=== PATIENT | female | born 1935 | race African-American/Black ===

== ENCOUNTER 2019-04-27 13:24 | Inpatient (IN) | payer MEDICARE, MEDICAID ==
[~2019-04-27] VITALS: Ht 157.5 cm; Wt 74.4 kg
[~2019-04-27 13:24] MED LIST: AMLO5TAB4 MT; DICL50TA9 MT; LABE100T5 PO; LOSA100T3 PO
[2019-04-27] MEDS ORDERED: ACETAMINOPHEN WITH CODEINE 300/30MG TABLET PO STA (18:03)
[2019-04-27 18:33] LABS: BASOPHILS % 1.3 % (0.0-2.0); CHLORIDE 110 mEq/L (98-107); EOSINOPHILS % 2.4 % (0.0-5.0); HEMATOCRIT. 38.2 % (36.0-48.0); HEMOGLOBIN. 13.3 g/dL (12.0-16.0); LYMPHOCYTES % 36.7 % (20.0-50.0); MEAN CORPUSCULAR HEMOGLOBIN 35.5 pg (28.0-32.0); MEAN CORPUSCULAR VOLUME 101.9 fL (81.0-99.0); MEAN PLATELET VOLUME 8.9 fl (7.4-10.4); MONOCYTES % 12.6 % (2.0-8.0); PLATELET 214 x1000/uL (130-400); RED BLOOD CELL COUNT 3.75 mill/uL (4.2-5.4); RED CELL DISTRIBUTION WIDTH 13.6 % (11.6-14.6)
[2019-04-27 19:22] LABS: CLARITY URINE CLEAR (CLEAR); COLOR URINE YELLOW (YELLOW); KETONES URINE NEGATIVE (NEGATIVE); LEUKOCYTE ESTERASE URINE TRACE (NEGATIVE); NITRITE URINE NEGATIVE (NEGATIVE); OCCULT BLOOD URINE NEGATIVE (NEGATIVE); PROTEIN URINE NEGATIVE (NEGATIVE); SPECIFIC GRAVITY URINE 1.021 (1.005-1.030); UROBILINOGEN URINE 0.2 E.U./dL (0.2-1.0)
[2019-04-27] MEDS ORDERED: MORPHINE SULFATE 4 MG/ML CPJ (NOT FOR IM USE) IV STA (19:42)
[2019-04-27] MEDS ORDERED: ONDANSETRON HCL 4MG/2ML INJ IV STA (19:42)
[2019-04-27] MEDS ORDERED: SODIUM CHLORIDE 0.9% 1,000 ML IV ONE (19:45)
[2019-04-27] MEDS ORDERED: CEFTRIAXONE 1 G PREMIX 50 ML IV ONE (19:45)
[2019-04-27] MEDS ORDERED: CLONIDINE 0.2MG TABLET PO NR (22:01)
[2019-04-27 23:35] VITALS: BP 108/65
[2019-04-28] MEDS ORDERED: GABA800T97 PO (00:28)
[2019-04-28] MEDS ORDERED: HYDR-4001 PO (00:28)
[2019-04-28] MEDS ORDERED: CLONIDINE 0.1MG TABLET PO PRN (01:15)
[2019-04-28] MEDS ORDERED: HYDROCODONE/ACETAMINOPHEN 5/325MG TABLET PO PRN (01:15)
[2019-04-28 04:00] VITALS: BP 96/70
[2019-04-28] MEDS: GABAPENTIN 400MG CAPSULE PO SCH ×2 (05:08→14:00)
[2019-04-28 05:47] LABS: BASOPHILS % 1.1 % (0.0-2.0); EOSINOPHILS % 2.8 % (0.0-5.0); HEMATOCRIT. 36.4 % (36.0-48.0); LYMPHOCYTES % 41.6 % (20.0-50.0); MEAN CORPUSCULAR HEMOGLOBIN 34.2 pg (28.0-32.0); MEAN CORPUSCULAR VOLUME 103.6 fL (81.0-99.0); MEAN PLATELET VOLUME 9.4 fl (7.4-10.4); MONOCYTES % 12.8 % (2.0-8.0); NEUTROPHILS % 41.7 % (40.0-76.0); PLATELET 181 x1000/uL (130-400); RED BLOOD CELL COUNT 3.52 mill/uL (4.2-5.4); RED CELL DISTRIBUTION WIDTH 13.4 % (11.6-14.6)
[2019-04-28 08:00] VITALS: BP 136/70
[2019-04-28] MEDS ORDERED: ENOXAPARIN 40MG/0.4ML SYR SUBCUT SCH (09:00)
[2019-04-28] MEDS ORDERED: ASPIRIN 325MG EC TABLET PO SCH (09:00)
[2019-04-28] MEDS ORDERED: LABETALOL HCL 100MG TABLET PO SCH (09:00)
[2019-04-28] MEDS ORDERED: LOSARTAN POTASSIUM 50 MG TABLET PO SCH (09:00)
[2019-04-28 12:00] VITALS: BP 91/61
[2019-04-28] MEDS ORDERED: ACET650T37 MT (12:51)
[2019-04-28 16:00] VITALS: BP 81/51
[2019-04-28] MEDS ORDERED: ACETAMINOPHEN 650MG/20.3ML UDC PO PRN (17:00)
[2019-04-28 18:36] VITALS: BP 103/64
== END 2019-04-28 19:10 | disposition home or self-care (01) | DRG 470 ==
LOC: ER 13:24 → ENRESERV 21:25 → EDBEDREQTM 22:11 → EDBEDREQSVC 22:11 → ENRESERV 23:05 → 6WST 23:22
PROVIDERS: ADMIT Internal Medicine; ATTEND Internal Medicine
DX: I12.9 Hypertensive chronic kidney disease with stage 1 through stage 4 chronic kidney disease, or unspecified chronic kidney disease (principal); N30.00 Acute cystitis without hematuria; D75.89 Other specified diseases of blood and blood-forming organs; M48.061 Spinal stenosis, lumbar region without neurogenic claudication; D72.821 Monocytosis (symptomatic); E78.5 Hyperlipidemia, unspecified; N18.9 Chronic kidney disease, unspecified; Z96.641 Presence of right artificial hip joint; M54.31 Sciatica, right side; Z98.891 History of uterine scar from previous surgery; Z79.899 Other long term (current) drug therapy
CPT/HCPCS: 36415; 71045; 72148; 73502; 80048; 80053; 81003; 84484; 85025; 93005; 96365; 97162; 99285; J0696; J1650; J2270; J2405; J7030

== ENCOUNTER 2020-10-29 11:48 | Inpatient (IN) | payer MEDICARE, MEDICAID ==
[~2020-10-29] VITALS: Ht 157.5 cm; Wt 68.9 kg
[~2020-10-29 11:48] MED LIST changes: +ACET650T37 MT; -DICL50TA9 MT; +HYDR-4001 PO
[2020-10-29] MEDS ORDERED: ASPIRIN 325MG EC TABLET PO ONE (13:15)
[2020-10-29 13:53] LABS: BASOPHILS % 0.8 % (0.0-2.0); EOSINOPHILS % 1.4 % (0.0-5.0); HEMATOCRIT. 41.2 % (36.0-48.0); LYMPHOCYTES % 25.4 % (20.0-50.0); MEAN CORPUSCULAR HEMOGLOBIN 34.3 pg (28.0-32.0); MEAN CORPUSCULAR VOLUME 101.2 fL (81.0-99.0); MEAN PLATELET VOLUME 9.9 fl (7.4-10.4); MONOCYTES % 10.1 % (2.0-8.0); NEUTROPHILS % 62.3 % (40.0-76.0); PLATELET 201 x1000/uL (130-400); RED BLOOD CELL COUNT 4.08 mill/uL (4.2-5.4); RED CELL DISTRIBUTION WIDTH 13.2 % (11.6-14.6)
[2020-10-29 13:58] LABS: CHLORIDE 111 mEq/L (98-107)
[2020-10-29] MEDS ORDERED: FUROSEMIDE 40MG/4ML VIAL IVP NR (14:15)
[2020-10-29] MEDS ORDERED: HYDROCODONE/ACETAMINOPHEN 10/325MG TABLET PO PRN (22:27)
[2020-10-29] MEDS ORDERED: NITROGLYCERIN 0.4MG TABLET SL SL PRN (22:27)
[2020-10-29 23:05] VITALS: BP 105/65
[2020-10-30] MEDS ORDERED: NITROGLYCERIN 0.4MG TABLET SL SL PRN
[2020-10-30] MEDS ORDERED: CARV12.545 PO (04:08)
[2020-10-30] MEDS ORDERED: AMIT75TA2 PO (04:08)
[2020-10-30] MEDS ORDERED: VALS80TA30 PO (04:08)
[2020-10-30] MEDS ORDERED: FLUT1BLS15 IH (04:08)
[2020-10-30] MEDS ORDERED: AZEL137S7 (04:08)
[2020-10-30] MEDS ORDERED: AMLO5TAB88 PO (04:08)
[2020-10-30 05:30] VITALS: BP 147/78
[2020-10-30] MEDS: HYDROCODONE/ACETAMINOPHEN 10/325MG TABLET PO PRN ×2 (05:48→13:21)
[2020-10-30 06:40] LABS: CHLORIDE 108 mEq/L (98-107)
[2020-10-30 06:44] LABS: EOSINOPHILS % 2.8 % (0.0-5.0); HEMATOCRIT. 41.5 % (36.0-48.0); HEMOGLOBIN. 14.2 g/dL (12.0-16.0); LYMPHOCYTES % 35.7 % (20.0-50.0); MEAN CORPUSCULAR HEMOGLOBIN 34.5 pg (28.0-32.0); MEAN PLATELET VOLUME 10.1 fl (7.4-10.4); MONOCYTES % 13.2 % (2.0-8.0); NEUTROPHILS % 47.3 % (40.0-76.0); PLATELET 188 x1000/uL (130-400); RED BLOOD CELL COUNT 4.11 mill/uL (4.2-5.4); RED CELL DISTRIBUTION WIDTH 13.3 % (11.6-14.6)
[2020-10-30 06:47] LABS: LDL CHOLESTEROL 90 mg/dL (5-100)
[2020-10-30 06:48] LABS: HDL CHOLESTEROL 70 mg/dL (40-59)
[2020-10-30 08:00] VITALS: BP 125/59
[2020-10-30] MEDS: IPRATROPIUM/ALBUTEROL 0.5-3(2.5)MG/3ML NEB HHN SCH ×5 (08:00→21:13)
[2020-10-30] MEDS ORDERED: AMLODIPINE 10MG TABLET PO SCH (09:00)
[2020-10-30] MEDS ORDERED: ENOXAPARIN 40MG/0.4ML SYR SUBCUT SCH (09:00)
[2020-10-30] MEDS ORDERED: FUROSEMIDE 40MG/4ML VIAL IVP SCH (09:00)
[2020-10-30] MEDS: LOSARTAN POTASSIUM 100 MG TABLET PO SCH (09:18)
[2020-10-30] MEDS: ASPIRIN 81MG TABLET PO SCH (09:18)
[2020-10-30] MEDS: CARVEDILOL 12.5MG TABLET PO SCH ×2 (09:19→20:13)
[2020-10-30] MEDS: FAMOTIDINE 20MG TABLET PO SCH (09:19)
[2020-10-30] MEDS: ENOXAPARIN 30MG/0.3ML SYR SUBCUT SCH (09:20)
[2020-10-30 12:00] VITALS: BP 99/57
[2020-10-30] MEDS ORDERED: POTASSIUM CHLORIDE 20MEQ TABLET SR PO NR (13:00)
[2020-10-30] MEDS: FUROSEMIDE 40MG/4ML VIAL IVP SCH ×2 (13:22→16:51)
[2020-10-30 16:00] VITALS: BP 99/57
[2020-10-30] MEDS ORDERED: METHYLPREDNISOLONE SOD SUCC 125 MG/2 ML VIAL IV NR (18:30)
[2020-10-30 20:00] VITALS: BP 97/58
[2020-10-30] MEDS: AMITRIPTYLINE 25MG TABLET PO SCH (20:29)
[2020-10-30] MEDS ORDERED: AMITRIPTYLINE 50MG TABLET PO SCH (21:00)
[2020-10-31] MEDS: IPRATROPIUM/ALBUTEROL 0.5-3(2.5)MG/3ML NEB HHN SCH ×6 (01:30→21:43)
[2020-10-31] MEDS ORDERED: METHYLPREDNISOLONE SOD SUCC 40 MG/ML VIAL IV SCH (02:00)
[2020-10-31] MEDS: ASPIRIN 81MG TABLET PO SCH (08:31)
[2020-10-31] MEDS: LOSARTAN POTASSIUM 100 MG TABLET PO SCH (08:31)
[2020-10-31] MEDS: ENOXAPARIN 30MG/0.3ML SYR SUBCUT SCH (08:31)
[2020-10-31] MEDS: CARVEDILOL 12.5MG TABLET PO SCH ×2 (08:31→21:08)
[2020-10-31] MEDS: FUROSEMIDE 40MG/4ML VIAL IVP SCH ×2 (08:31→18:05)
[2020-10-31] MEDS: FAMOTIDINE 20MG TABLET PO SCH (08:31)
[2020-10-31 09:38] VITALS: BP 127/76
[2020-10-31 12:19] VITALS: BP 90/50
[2020-10-31] MEDS: METHYLPREDNISOLONE SOD SUCC 40 MG/ML VIAL IV SCH ×2 (13:30→21:08)
[2020-10-31 16:07] LABS: HEMATOCRIT. 39.8 % (36.0-48.0); HEMOGLOBIN. 13.5 g/dL (12.0-16.0); LYMPHOCYTES % 9.8 % (20.0-50.0); MEAN CORPUSCULAR HEMOGLOBIN 34.2 pg (28.0-32.0); MEAN CORPUSCULAR VOLUME 100.8 fL (81.0-99.0); MEAN PLATELET VOLUME 10.4 fl (7.4-10.4); MONOCYTES % 3.4 % (2.0-8.0); NEUTROPHILS % 86.8 % (40.0-76.0); PLATELET 198 x1000/uL (130-400); RED BLOOD CELL COUNT 3.95 mill/uL (4.2-5.4); RED CELL DISTRIBUTION WIDTH 13.4 % (11.6-14.6)
[2020-10-31 16:08] VITALS: BP 107/62
[2020-10-31 20:00] VITALS: BP 116/61
[2020-10-31] MEDS: AMITRIPTYLINE 25MG TABLET PO SCH (21:08)
[2020-10-31 23:54] VITALS: BP 110/68
[2020-11-01 03:53] VITALS: BP 111/70
[2020-11-01] MEDS: IPRATROPIUM/ALBUTEROL 0.5-3(2.5)MG/3ML NEB HHN SCH ×4 (04:27→16:05)
[2020-11-01] MEDS: METHYLPREDNISOLONE SOD SUCC 40 MG/ML VIAL IV SCH ×2 (05:27→14:38)
[2020-11-01 08:00] VITALS: BP 131/80
[2020-11-01] MEDS: ASPIRIN 81MG TABLET PO SCH (08:59)
[2020-11-01] MEDS: FUROSEMIDE 40MG/4ML VIAL IVP SCH (08:59)
[2020-11-01] MEDS: FAMOTIDINE 20MG TABLET PO SCH (08:59)
[2020-11-01] MEDS: LOSARTAN POTASSIUM 100 MG TABLET PO SCH (08:59)
[2020-11-01] MEDS: CARVEDILOL 12.5MG TABLET PO SCH (09:00)
[2020-11-01] MEDS: ENOXAPARIN 30MG/0.3ML SYR SUBCUT SCH (09:00)
[2020-11-01 12:00] VITALS: BP 122/67
[2020-11-01] MEDS ORDERED: ALBU18HF2 IH (12:50)
[2020-11-01] MEDS ORDERED: FLUT1DIS3 INH (12:50)
[2020-11-01] MEDS ORDERED: POTA20TA82 MT (12:51)
[2020-11-01] MEDS ORDERED: FURO-151 MT (12:51)
[2020-11-01 15:15] VITALS: BP 122/67
== END 2020-11-01 16:45 | disposition home health service (06) | DRG 133 ==
LOC: ER 11:48 → 7WST 16:18 → EDBEDREQTM 16:21 → EDBEDREQ 16:21 → ENRESERV 22:02 → 8WST 10-30 05:20
PROVIDERS: ADMIT Internal Medicine; ATTEND Internal Medicine
DX: J96.01 Acute respiratory failure with hypoxia (principal); I50.23 Acute on chronic systolic (congestive) heart failure; E87.8 Other disorders of electrolyte and fluid balance, not elsewhere classified; I24.8 Other forms of acute ischemic heart disease; J44.1 Chronic obstructive pulmonary disease with (acute) exacerbation; I11.0 Hypertensive heart disease with heart failure; E78.5 Hyperlipidemia, unspecified; Z20.822 Contact with and (suspected) exposure to COVID-19; E78.00 Pure hypercholesterolemia, unspecified; Z96.649 Presence of unspecified artificial hip joint; Z79.899 Other long term (current) drug therapy; Z82.49 Family history of ischemic heart disease and other diseases of the circulatory system; Z87.891 Personal history of nicotine dependence
CPT/HCPCS: 36415; 71045; 80048; 80053; 80061; 83880; 84484; 85025; 93005; 93306; 94640; 97162; 99285; C1893; J1650; J1940; J2920; J2930; U0003; U0005

== ENCOUNTER 2021-04-19 14:11 | Inpatient (IN) | payer MEDICARE, OTHER ==
[~2021-04-19] VITALS: Ht 172.7 cm; Wt 68.0 kg
[~2021-04-19 14:11] MED LIST changes: +ALBU18HF2 IH; +AMIT75TA2 PO; +AMLO5TAB88 PO; +AZEL137S7; +CARV12.545 PO; +FLUT1DIS3 INH; +FURO-151 MT; +METH4TAB17 MT; +POTA20TA82 MT; +VALS80TA30 PO
[2021-04-19] MEDS ORDERED: ASPIRIN 81MG TABLET PO ONE (15:30)
[2021-04-19 15:39] LABS: BASOPHILS % 0.5 % (0.0-2.0); EOSINOPHILS % 0.1 % (0.0-5.0); HEMATOCRIT. 44.3 % (36.0-48.0); LYMPHOCYTES % 21.5 % (20.0-50.0); MEAN CORPUSCULAR HEMOGLOBIN 33.9 pg (28.0-32.0); MEAN CORPUSCULAR VOLUME 100.4 fL (81.0-99.0); MEAN PLATELET VOLUME 8.6 fl (7.4-10.4); MONOCYTES % 10.5 % (2.0-8.0); NEUTROPHILS % 67.4 % (40.0-76.0); PLATELET 269 x1000/uL (130-400); RED BLOOD CELL COUNT 4.42 mill/uL (4.2-5.4); RED CELL DISTRIBUTION WIDTH 13.3 % (11.6-14.6)
[2021-04-19 15:43] LABS: CHLORIDE 102 mEq/L (98-107)
[2021-04-19] MEDS ORDERED: FUROSEMIDE 40MG/4ML VIAL IVP ONE (17:00)
[2021-04-19 20:08] LABS: CLARITY URINE CLEAR (CLEAR); COLOR URINE YELLOW (YELLOW); KETONES URINE NEGATIVE (NEGATIVE); LEUKOCYTE ESTERASE URINE NEGATIVE (NEGATIVE); NITRITE URINE NEGATIVE (NEGATIVE); OCCULT BLOOD URINE NEGATIVE (NEGATIVE); PH URINE 5.5 (4.5-8.0); PROTEIN URINE NEGATIVE (NEGATIVE); SPECIFIC GRAVITY URINE 1.014 (1.005-1.030); UROBILINOGEN URINE 0.2 E.U./dL (0.2-1.0)
[2021-04-19 21:08] VITALS: BP_SYST 124; BP_SYST 128; BP_DIAS 98
[2021-04-19] MEDS ORDERED: ASPI-1160 MT (22:53)
[2021-04-19] MEDS ORDERED: VALA500T MT (22:53)
[2021-04-20] MEDS ORDERED: NALOXONE HCL 0.4 MG/ML 1ML VIAL IV PRN (00:30)
[2021-04-20] MEDS: HYDROCODONE/ACETAMINOPHEN 5/325MG TABLET PO PRN ×3 (00:43→18:16)
[2021-04-20] MEDS ORDERED: ACETAMINOPHEN 325MG TABLET PO PRN (01:00)
[2021-04-20 04:00] VITALS: BP 120/85
[2021-04-20 08:00] VITALS: BP 140/85
[2021-04-20] MEDS: IPRATROPIUM/ALBUTEROL 0.5-3(2.5)MG/3ML NEB HHN SCH ×3 (09:12→21:21)
[2021-04-20] MEDS: CARVEDILOL 12.5MG TABLET PO SCH ×2 (09:59→21:00)
[2021-04-20] MEDS: AMLODIPINE 5MG TABLET PO SCH (09:59)
[2021-04-20] MEDS: LOSARTAN POTASSIUM 100 MG TABLET PO SCH (09:59)
[2021-04-20] MEDS: LABETALOL HCL 100MG TABLET PO SCH ×2 (10:00→20:52)
[2021-04-20] MEDS: FUROSEMIDE 40MG TABLET PO SCH ×2 (10:06→21:00)
[2021-04-20] MEDS: FLUTICASONE PROPIONATE 50MCG/SPRAY BOTTLE BOTHNSTRLS SCH ×2 (10:07→22:03)
[2021-04-20 12:00] VITALS: BP 102/50
[2021-04-20 16:00] VITALS: BP 111/57
[2021-04-20] MEDS: DOCUSATE SODIUM 250MG CAPSULE PO SCH (18:42)
[2021-04-20 20:00] VITALS: BP 89/55
[2021-04-20] MEDS ORDERED: AMITRIPTYLINE 25MG TABLET PO SCH (21:00)
[2021-04-21] VITALS: BP 95/55
[2021-04-21] MEDS: IPRATROPIUM/ALBUTEROL 0.5-3(2.5)MG/3ML NEB HHN SCH ×2 (01:00→04:55)
[2021-04-21 04:00] VITALS: BP 103/63
[2021-04-21 08:00] VITALS: BP 100/65
[2021-04-21] MEDS: LOSARTAN POTASSIUM 100 MG TABLET PO SCH (08:08)
[2021-04-21] MEDS: CARVEDILOL 12.5MG TABLET PO SCH (08:08)
[2021-04-21] MEDS: LABETALOL HCL 100MG TABLET PO SCH (08:09)
[2021-04-21] MEDS: AMLODIPINE 5MG TABLET PO SCH (08:09)
[2021-04-21] MEDS: FUROSEMIDE 40MG TABLET PO SCH (08:09)
[2021-04-21] MEDS ORDERED: ASPIRIN 81MG TABLET PO SCH (09:00)
[2021-04-21] MEDS: DOCUSATE SODIUM 250MG CAPSULE PO SCH (09:29)
[2021-04-21] MEDS: FLUTICASONE PROPIONATE 50MCG/SPRAY BOTTLE BOTHNSTRLS SCH (09:29)
[2021-04-21 12:00] VITALS: BP 90/50
[2021-04-21 15:27] VITALS: BP 98/54
[2021-04-21 15:57] LABS: BASOPHILS % 0.5 % (0.0-2.0); EOSINOPHILS % 1.9 % (0.0-5.0); HEMATOCRIT. 40.8 % (36.0-48.0); HEMOGLOBIN. 13.6 g/dL (12.0-16.0); LYMPHOCYTES % 29.8 % (20.0-50.0); MEAN CORPUSCULAR HEMOGLOBIN 34.1 pg (28.0-32.0); MEAN CORPUSCULAR VOLUME 102.7 fL (81.0-99.0); MEAN PLATELET VOLUME 9.1 fl (7.4-10.4); MONOCYTES % 11.4 % (2.0-8.0); NEUTROPHILS % 56.4 % (40.0-76.0); PLATELET 216 x1000/uL (130-400); RED BLOOD CELL COUNT 3.98 mill/uL (4.2-5.4); RED CELL DISTRIBUTION WIDTH 13.2 % (11.6-14.6)
== END 2021-04-21 16:30 | disposition home or self-care (01) | DRG 203 ==
LOC: ER 15:14 → 6WST 17:13 → EDBEDREQ 17:27 → ENRESERV 19:38
PROVIDERS: ADMIT Internal Medicine; ATTEND Internal Medicine
DX: M94.0 Chondrocostal junction syndrome [Tietze] (principal); N17.0 Acute kidney failure with tubular necrosis; I50.23 Acute on chronic systolic (congestive) heart failure; I11.0 Hypertensive heart disease with heart failure; E87.1 Hypo-osmolality and hyponatremia; Z96.649 Presence of unspecified artificial hip joint; I27.20 Pulmonary hypertension, unspecified; E78.00 Pure hypercholesterolemia, unspecified; E78.5 Hyperlipidemia, unspecified; Z82.49 Family history of ischemic heart disease and other diseases of the circulatory system; Z87.891 Personal history of nicotine dependence; Z98.891 History of uterine scar from previous surgery; Z79.899 Other long term (current) drug therapy
CPT/HCPCS: 36415; 71045; 80048; 80053; 81003; 83880; 84484; 85025; 93005; 93306; 94640; 99291; J1940

== ENCOUNTER 2021-04-25 14:41 | Inpatient (IN) | payer MEDICARE, OTHER ==
[~2021-04-25] VITALS: Ht 157.5 cm; Wt 81.7 kg
[~2021-04-25 14:41] MED LIST changes: +ASPI-1160 MT; -METH4TAB17 MT
[2021-04-25 16:06] LABS: BASOPHILS % 0.5 % (0.0-2.0); EOSINOPHILS % 0.1 % (0.0-5.0); HEMATOCRIT. 42.8 % (36.0-48.0); LYMPHOCYTES % 9.8 % (20.0-50.0); MEAN CORPUSCULAR HEMOGLOBIN 33.7 pg (28.0-32.0); MEAN CORPUSCULAR VOLUME 102.9 fL (81.0-99.0); MEAN PLATELET VOLUME 9.2 fl (7.4-10.4); MONOCYTES % 5.3 % (2.0-8.0); NEUTROPHILS % 84.3 % (40.0-76.0); PLATELET 232 x1000/uL (130-400); RED BLOOD CELL COUNT 4.16 mill/uL (4.2-5.4); RED CELL DISTRIBUTION WIDTH 13.3 % (11.6-14.6)
[2021-04-25 16:07] LABS: CHLORIDE 102 mEq/L (98-107)
[2021-04-25] MEDS ORDERED: PIPERACILLIN/TAZ 3.375G PREMIX 50 ML IV ONE (17:00)
[2021-04-25] MEDS ORDERED: VANCOMYCIN 1 G PREMIX 200 ML IV ONE (17:00)
[2021-04-25] MEDS ORDERED: NOREPINEPHRINE 8MG/250ML PMX 250 ML IV SCH (18:00)
[2021-04-25 18:14] LABS: CLARITY URINE CLEAR (CLEAR); COLOR URINE YELLOW (YELLOW); KETONES URINE 1+ (NEGATIVE); LEUKOCYTE ESTERASE URINE NEGATIVE (NEGATIVE); NITRITE URINE NEGATIVE (NEGATIVE); OCCULT BLOOD URINE NEGATIVE (NEGATIVE); PH URINE 5.5 (4.5-8.0); PROTEIN URINE NEGATIVE (NEGATIVE); SPECIFIC GRAVITY URINE 1.023 (1.005-1.030); UROBILINOGEN URINE 0.2 E.U./dL (0.2-1.0)
[2021-04-25] MEDS ORDERED: HEPARIN 5000 UNITS/ML VIAL IV PRN (19:00)
[2021-04-25] MEDS ORDERED: HEPARIN 5000 UNITS/ML VIAL IV SCH (19:00)
[2021-04-25] MEDS ORDERED: HEPARIN 25,000 UNITS PREMIX 250 ML IV PRN (19:00)
[2021-04-25] MEDS ORDERED: SODIUM CHLORIDE 0.9% 1000ML BAG (SEPSIS BOLUS) IV ONE (19:15)
[2021-04-26 00:31] LABS: D-DIMER 9.34 mg/L FEU (<0.50); INR 1.1; PROTHROMBIN TIME 11.9 sec (9.6-11.0)
[2021-04-26] MEDS ORDERED: HEPARIN 5000 UNITS/ML VIAL IV SCH (01:00)
[2021-04-26] MEDS ORDERED: HEPARIN BOLUS PRN aPTT <36 IV (07:30)
[2021-04-26] MEDS ORDERED: HEPARIN BOLUS PRN aPTT 37-44 IV (07:30)
[2021-04-26] MEDS ORDERED: MORPHINE SULFATE 2 MG/ML CPJ (NOT FOR IM USE) IV PRN (10:00)
[2021-04-26] MEDS ORDERED: NALOXONE HCL 0.4MG/ML VIAL IV PRN (10:15)
[2021-04-26] MEDS ORDERED: ONDANSETRON HCL 4MG/2ML INJ IV PRN (10:30)
[2021-04-26] MEDS ORDERED: ENOXAPARIN 30MG/0.3ML SYR SUBCUT SCH (13:00)
[2021-04-26 14:13] VITALS: BP 151/90
[2021-04-26 15:40] VITALS: BP 144/71
[2021-04-26 16:00] VITALS: BP 121/67
[2021-04-26 18:00] VITALS: BP 112/75
[2021-04-26 20:00] VITALS: BP 123/76
[2021-04-26] MEDS: HYDROCODONE/ACETAMINOPHEN 5/325MG TABLET PO PRN (20:08)
[2021-04-26 22:00] VITALS: BP 126/75
[2021-04-26] MEDS: ENOXAPARIN 80MG/0.8ML SYR SUBCUT SCH (23:06)
[2021-04-27] VITALS (15 sets, daily range): BP systolic 108–160; BP diastolic 61–93
[2021-04-27] MEDS: HYDROCODONE/ACETAMINOPHEN 5/325MG TABLET PO PRN ×5 (02:50→23:59)
[2021-04-27 06:28] LABS: EOSINOPHILS % 1.6 % (0.0-5.0); HEMOGLOBIN. 12.2 g/dL (12.0-16.0); LYMPHOCYTES % 26.8 % (20.0-50.0); MEAN CORPUSCULAR HEMOGLOBIN 34.3 pg (28.0-32.0); MEAN CORPUSCULAR VOLUME 104.2 fL (81.0-99.0); MONOCYTES % 10.3 % (2.0-8.0); NEUTROPHILS % 60.3 % (40.0-76.0); PLATELET 203 x1000/uL (130-400); RED BLOOD CELL COUNT 3.55 mill/uL (4.2-5.4); RED CELL DISTRIBUTION WIDTH 13.4 % (11.6-14.6)
[2021-04-27] MEDS: ASPIRIN 81MG TABLET PO SCH (07:29)
[2021-04-27 07:43] LABS: CREATINE KINASE MB FRACTION 5.1 ng/mL (0.5-3.6)
[2021-04-27] MEDS ORDERED: ENOXAPARIN 30MG/0.3ML SYR SUBCUT SCH (09:00)
[2021-04-27] MEDS: ACETAMINOPHEN 325MG TABLET PO PRN (11:17)
[2021-04-27 15:22] LABS: HEMATOCRIT 35.6 % (36.0-48.0); HEMOGLOBIN 11.8 g/dL (12.0-16.0)
[2021-04-27] MEDS: DOCUSATE SODIUM 100MG CAPSULE PO SCH (18:14)
[2021-04-27] MEDS: ENOXAPARIN 80MG/0.8ML SYR SUBCUT SCH (20:19)
[2021-04-28] VITALS (11 sets, daily range): BP systolic 108–161; BP diastolic 58–93
[2021-04-28] MEDS: ACETAMINOPHEN 325MG TABLET PO PRN ×2 (02:59→08:46)
[2021-04-28] MEDS: HYDROCODONE/ACETAMINOPHEN 5/325MG TABLET PO PRN ×3 (04:04→20:06)
[2021-04-28] MEDS: CLONIDINE 0.1MG TABLET PO PRN (06:30)
[2021-04-28 06:52] LABS: C REACTIVE PROTEIN CARDIAC 4.7 mg/L (0.00-3.00)
[2021-04-28 07:26] LABS: BASOPHILS % 1.2 % (0.0-2.0); EOSINOPHILS % 2.5 % (0.0-5.0); HEMATOCRIT. 42.2 % (36.0-48.0); HEMOGLOBIN. 13.6 g/dL (12.0-16.0); LYMPHOCYTES % 31.9 % (20.0-50.0); MEAN CORPUSCULAR HEMOGLOBIN 34.5 pg (28.0-32.0); MEAN CORPUSCULAR VOLUME 106.9 fL (81.0-99.0); MEAN PLATELET VOLUME 8.8 fl (7.4-10.4); MONOCYTES % 10.9 % (2.0-8.0); NEUTROPHILS % 53.5 % (40.0-76.0); PLATELET 203 x1000/uL (130-400); RED BLOOD CELL COUNT 3.95 mill/uL (4.2-5.4); RED CELL DISTRIBUTION WIDTH 13.9 % (11.6-14.6)
[2021-04-28] MEDS: ASPIRIN 81MG TABLET PO SCH (08:46)
[2021-04-28] MEDS: DOCUSATE SODIUM 100MG CAPSULE PO SCH (08:46)
[2021-04-28] MEDS: ENOXAPARIN 80MG/0.8ML SYR SUBCUT SCH ×2 (16:04→23:47)
[2021-04-28] MEDS: METOPROLOL TARTRATE 50MG TABLET PO SCH (20:06)
[2021-04-29] VITALS (13 sets, daily range): BP systolic 104–168; BP diastolic 57–98
[2021-04-29] MEDS: HYDROCODONE/ACETAMINOPHEN 5/325MG TABLET PO PRN ×4 (00:07→18:26)
[2021-04-29] MEDS: DOCUSATE SODIUM 100MG CAPSULE PO SCH (09:00)
[2021-04-29] MEDS: ASCORBIC ACID 500 MG TABLET PO SCH (09:00)
[2021-04-29] MEDS: ZINC SULFATE 220 MG ( 50 ) CAPSULE PO SCH (09:00)
[2021-04-29] MEDS: PANTOPRAZOLE SODIUM 40 MG/VIAL IV SCH (09:18)
[2021-04-29] MEDS: CLONIDINE 0.1MG TABLET PO PRN (09:18)
[2021-04-29] MEDS: ENOXAPARIN 80MG/0.8ML SYR SUBCUT SCH ×2 (09:25→21:24)
[2021-04-29] MEDS: ASPIRIN 81MG TABLET PO SCH (10:51)
[2021-04-29] MEDS: METOPROLOL TARTRATE 50MG TABLET PO SCH ×2 (10:52→21:24)
[2021-04-29] MEDS: GABAPENTIN 300MG CAPSULE PO SCH ×2 (14:04→21:24)
[2021-04-29] MEDS: ACETAMINOPHEN 325MG TABLET PO PRN (14:04)
[2021-04-30] VITALS (13 sets, daily range): BP systolic 107–178; BP diastolic 57–96
[2021-04-30] MEDS: GABAPENTIN 300MG CAPSULE PO SCH ×3 (06:19→21:27)
[2021-04-30] MEDS: DOCUSATE SODIUM 100MG CAPSULE PO SCH (10:00)
[2021-04-30] MEDS: ZINC SULFATE 220 MG ( 50 ) CAPSULE PO SCH (10:00)
[2021-04-30] MEDS: ASPIRIN 81MG TABLET PO SCH (10:00)
[2021-04-30] MEDS: METOPROLOL TARTRATE 50MG TABLET PO SCH ×2 (10:00→21:27)
[2021-04-30] MEDS: PANTOPRAZOLE SODIUM 40 MG/VIAL IV SCH (10:00)
[2021-04-30] MEDS: ASCORBIC ACID 500 MG TABLET PO SCH (10:01)
[2021-04-30] MEDS: ENOXAPARIN 80MG/0.8ML SYR SUBCUT SCH ×2 (10:01→21:27)
[2021-04-30] MEDS: HYDROCODONE/ACETAMINOPHEN 5/325MG TABLET PO PRN (15:51)
[2021-04-30] MEDS: CLONIDINE 0.1MG TABLET PO PRN (16:04)
[2021-05-01] VITALS (12 sets, daily range): BP systolic 103–165; BP diastolic 55–96
[2021-05-01] MEDS: GABAPENTIN 300MG CAPSULE PO SCH ×3 (05:51→21:01)
[2021-05-01 07:38] LABS: BASOPHILS % 0.9 % (0.0-2.0); EOSINOPHILS % 2.6 % (0.0-5.0); HEMATOCRIT. 32.9 % (36.0-48.0); HEMOGLOBIN. 11.1 g/dL (12.0-16.0); LYMPHOCYTES % 26.5 % (20.0-50.0); MEAN CORPUSCULAR HEMOGLOBIN 34.9 pg (28.0-32.0); MEAN CORPUSCULAR VOLUME 103.6 fL (81.0-99.0); MEAN PLATELET VOLUME 9.5 fl (7.4-10.4); MONOCYTES % 8.7 % (2.0-8.0); NEUTROPHILS % 61.3 % (40.0-76.0); PLATELET 255 x1000/uL (130-400); RED BLOOD CELL COUNT 3.18 mill/uL (4.2-5.4); RED CELL DISTRIBUTION WIDTH 13.7 % (11.6-14.6)
[2021-05-01] MEDS: DOCUSATE SODIUM 100MG CAPSULE PO SCH (08:48)
[2021-05-01] MEDS: ASCORBIC ACID 500 MG TABLET PO SCH (08:48)
[2021-05-01] MEDS: ASPIRIN 81MG TABLET PO SCH (08:48)
[2021-05-01] MEDS: ZINC SULFATE 220 MG ( 50 ) CAPSULE PO SCH (08:48)
[2021-05-01] MEDS: PANTOPRAZOLE SODIUM 40 MG/VIAL IV SCH (08:48)
[2021-05-01] MEDS: ENOXAPARIN 80MG/0.8ML SYR SUBCUT SCH ×2 (08:49→21:01)
[2021-05-01] MEDS: METOPROLOL TARTRATE 50MG TABLET PO SCH ×2 (08:49→21:01)
[2021-05-01] MEDS: HYDROCODONE/ACETAMINOPHEN 5/325MG TABLET PO PRN (12:09)
[2021-05-01] MEDS ORDERED: APIX5TAB MT (13:26)
[2021-05-01] MEDS ORDERED: ZINC220C2 PO (13:26)
[2021-05-01] MEDS ORDERED: ASCO500T20 PO (13:26)
[2021-05-01] MEDS ORDERED: DIPH28.44 TP (13:26)
[2021-05-01] MEDS ORDERED: DOCU-150 PO (13:26)
[2021-05-01] MEDS ORDERED: TRAM50TA3 MT (13:26)
[2021-05-01] MEDS ORDERED: VALACYCLOVIR HCL 500MG TABLET PO SCH (18:30)
[2021-05-02] VITALS: BP 155/81
[2021-05-02 02:00] VITALS: BP 159/77
== END 2021-05-02 02:27 | DRG 197 ==
LOC: ER 14:55 → MICUSO 20:01 → EDBEDREQ 20:03 → EDBEDREQSVC 20:03 → EDBEDREQTM 20:03 → 3WST 04-26 12:31
PROVIDERS: ADMIT Internal Medicine; ATTEND Internal Medicine
DX: I82.431 Acute embolism and thrombosis of right popliteal vein (principal); N17.0 Acute kidney failure with tubular necrosis; E43 Unspecified severe protein-calorie malnutrition; I13.0 Hypertensive heart and chronic kidney disease with heart failure and stage 1 through stage 4 chronic kidney disease, or unspecified chronic kidney disease; I27.29 Other secondary pulmonary hypertension; R65.10 Systemic inflammatory response syndrome (SIRS) of non-infectious origin without acute organ dysfunction; I95.89 Other hypotension; E87.1 Hypo-osmolality and hyponatremia; I50.22 Chronic systolic (congestive) heart failure; L89.156 Pressure-induced deep tissue damage of sacral region; D72.829 Elevated white blood cell count, unspecified; E78.00 Pure hypercholesterolemia, unspecified; E78.5 Hyperlipidemia, unspecified; Z96.649 Presence of unspecified artificial hip joint; I07.1 Rheumatic tricuspid insufficiency; N18.9 Chronic kidney disease, unspecified; Z82.49 Family history of ischemic heart disease and other diseases of the circulatory system; Z86.19 Personal history of other infectious and parasitic diseases; Z68.32 Body mass index [BMI] 32.0-32.9, adult; Z79.82 Long term (current) use of aspirin; Z79.899 Other long term (current) drug therapy; Z90.49 Acquired absence of other specified parts of digestive tract; B02.9 Zoster without complications
CPT/HCPCS: 36415; 71045; 73610; 74176; 76700; 76881; 78582; 80048; 80053; 80061; 81003; 82040; 82150; 82550; 82553; 83605; 83735; 83880; 84134; 84145; 84443; 84484; 85014; 85018; 85025; 85379; 85651; 86141; 93005; 93880; 93923; 93970; 97110; 97161; 97530; 99291; A9558; C9113; J1644; J1650; J2270; J2405; J2543; J3370; J3490; J7030; J7070

== ENCOUNTER 2021-05-15 10:59 | Inpatient (IN) | payer MEDICARE, OTHER ==
[~2021-05-15] VITALS: Ht 157.5 cm; Wt 72.1 kg
[~2021-05-15 10:59] MED LIST changes: -AMLO5TAB4 MT; +APIX5TAB MT; +ASCO500T20 PO; +DIPH28.44 TP; +DOCU-150 PO; -LABE100T5 PO; -LOSA100T3 PO; +TRAM50TA3 MT; -VALS80TA30 PO; +ZINC220C2 PO
[2021-05-15] MEDS ORDERED: PIPERACILLIN/TAZOBACTAM 3.375GM/50ML PREMIX IV ONE (11:15)
[2021-05-15] MEDS ORDERED: PIPERACILLIN/TAZ 3.375G PREMIX 50 ML IV ONE (11:30)
[2021-05-15 12:17] LABS: BASOPHILS % 0.6 % (0.0-2.0); EOSINOPHILS % 1.6 % (0.0-5.0); HEMATOCRIT. 38.7 % (36.0-48.0); HEMOGLOBIN. 12.2 g/dL (12.0-16.0); LYMPHOCYTES % 15.9 % (20.0-50.0); MEAN CORPUSCULAR HEMOGLOBIN 33.7 pg (28.0-32.0); MEAN CORPUSCULAR VOLUME 107.1 fL (81.0-99.0); MONOCYTES % 8.3 % (2.0-8.0); NEUTROPHILS % 73.6 % (40.0-76.0); RED BLOOD CELL COUNT 3.62 mill/uL (4.2-5.4); RED CELL DISTRIBUTION WIDTH 15.3 % (11.6-14.6)
[2021-05-15 12:25] LABS: INR 1.1; PARTIAL THROMBOPLASTIN TIME 29.3 sec (23.4-31.0); PROTHROMBIN TIME 11.5 sec (9.6-11.0)
[2021-05-15 12:26] LABS: CHLORIDE 110 mEq/L (98-107)
[2021-05-15 12:45] LABS: MEAN PLATELET VOLUME 9.8 fl (7.4-10.4)
[2021-05-15 12:46] LABS: PLATELET 189 x1000/uL (130-400); PLATELET ESTIMATE NORMAL
[2021-05-15] MEDS ORDERED: IOHEXOL-350 100 ML BOTTLE ONE (15:15)
[2021-05-15] MEDS ORDERED: HEPARIN 5000 UNITS/ML VIAL IV STA ×2 (15:23→15:27)
[2021-05-15] MEDS ORDERED: HEPARIN 25,000 UNITS PREMIX 250 ML IV PRN (15:30)
[2021-05-15] MEDS ORDERED: HEPARIN 5000 UNITS/ML VIAL IV PRN ×2 (15:30)
[2021-05-15] MEDS ORDERED: CLONIDINE 0.1MG TABLET PO PRN (15:45)
[2021-05-15] MEDS ORDERED: IPRATROPIUM/ALBUTEROL 0.5-3(2.5)MG/3ML NEB HHN PRN (15:45)
[2021-05-15] MEDS ORDERED: HEPARIN BOLUS PRN aPTT 37-44 IV ×2 (16:00)
[2021-05-15] MEDS ORDERED: HEPARIN BOLUS PRN aPTT <36 IV ×2 (16:00)
[2021-05-15] MEDS ORDERED: HEPARIN 80 UNITS/KG BOLUS IV SCH ×2 (16:00)
[2021-05-15] MEDS ORDERED: HEPARIN 25,000 UNITS PREMIX 250 ML IV SCH (16:00)
[2021-05-15] MEDS ORDERED: HEPARIN 25,000 UNITS in DEXT 5% WATER 245 ML IV SCH (16:30)
[2021-05-15] MEDS: HYDROCODONE/ACETAMINOPHEN 5/325MG TABLET PO PRN ×2 (17:49→21:50)
[2021-05-15] MEDS: ENOXAPARIN 80MG/0.8ML SYR SUBCUT SCH (17:55)
[2021-05-15] MEDS: ACETAMINOPHEN 325MG TABLET PO PRN (20:02)
[2021-05-15 21:03] LABS: CLARITY URINE CLEAR (CLEAR); COLOR URINE YELLOW (YELLOW); KETONES URINE TRACE (NEGATIVE); LEUKOCYTE ESTERASE URINE NEGATIVE (NEGATIVE); NITRITE URINE NEGATIVE (NEGATIVE); OCCULT BLOOD URINE NEGATIVE (NEGATIVE); PH URINE 6.5 (4.5-8.0); PROTEIN URINE NEGATIVE (NEGATIVE); SPECIFIC GRAVITY URINE 1.043 (1.005-1.030); UROBILINOGEN URINE 0.2 E.U./dL (0.2-1.0)
[2021-05-15 22:12] VITALS: BP 154/64
[2021-05-16] VITALS: BP 123/64
[2021-05-16] MEDS: HYDROCODONE/ACETAMINOPHEN 5/325MG TABLET PO PRN ×5 (01:50→19:58)
[2021-05-16 04:00] VITALS: BP 143/71
[2021-05-16] MEDS: ENOXAPARIN 80MG/0.8ML SYR SUBCUT SCH ×2 (05:56→16:42)
[2021-05-16 06:47] LABS: BASOPHILS % 0.6 % (0.0-2.0); EOSINOPHILS % 1.7 % (0.0-5.0); HEMATOCRIT. 31.5 % (36.0-48.0); HEMOGLOBIN. 10.7 g/dL (12.0-16.0); LYMPHOCYTES % 40.3 % (20.0-50.0); MEAN CORPUSCULAR HEMOGLOBIN 35.2 pg (28.0-32.0); NEUTROPHILS % 45.4 % (40.0-76.0); PLATELET 164 x1000/uL (130-400); RED BLOOD CELL COUNT 3.03 mill/uL (4.2-5.4); RED CELL DISTRIBUTION WIDTH 14.7 % (11.6-14.6)
[2021-05-16 06:57] LABS: CHLORIDE 109 mEq/L (98-107)
[2021-05-16 08:00] VITALS: BP 115/76
[2021-05-16 12:00] VITALS: BP 115/76
[2021-05-16 16:00] VITALS: BP 126/75
[2021-05-16 20:00] VITALS: BP 152/80
[2021-05-16] MEDS ORDERED: NALOXONE HCL 0.4MG/ML VIAL IV PRN (22:45)
[2021-05-16] MEDS: MORPHINE SULFATE 2 MG/ML CPJ (NOT FOR IM USE) IV PRN (22:49)
[2021-05-17] VITALS: BP 131/67
[2021-05-17] MEDS: HYDROCODONE/ACETAMINOPHEN 5/325MG TABLET PO PRN ×3 (01:08→22:34)
[2021-05-17] MEDS: DIPHENHYDRAMINE 50MG/ML VIAL IV PRN (02:47)
[2021-05-17 04:00] VITALS: BP 152/72
[2021-05-17] MEDS: ENOXAPARIN 80MG/0.8ML SYR SUBCUT SCH ×2 (05:40→16:46)
[2021-05-17] MEDS: MORPHINE SULFATE 2 MG/ML CPJ (NOT FOR IM USE) IV PRN ×4 (05:45→20:52)
[2021-05-17 07:08] LABS: BASOPHILS % 0.4 % (0.0-2.0); EOSINOPHILS % 0.4 % (0.0-5.0); HEMATOCRIT. 29.3 % (36.0-48.0); HEMOGLOBIN. 9.7 g/dL (12.0-16.0); LYMPHOCYTES % 9.2 % (20.0-50.0); MEAN CORPUSCULAR HEMOGLOBIN 35.2 pg (28.0-32.0); MEAN PLATELET VOLUME 10.3 fl (7.4-10.4); PLATELET 162 x1000/uL (130-400); RED BLOOD CELL COUNT 2.77 mill/uL (4.2-5.4); RED CELL DISTRIBUTION WIDTH 14.5 % (11.6-14.6)
[2021-05-17 07:24] LABS: CHLORIDE 110 mEq/L (98-107)
[2021-05-17 08:00] VITALS: BP 145/79
[2021-05-17 12:00] VITALS: BP 142/88
[2021-05-17] MEDS: ONDANSETRON HCL 4MG/2ML INJ IV PRN (13:01)
[2021-05-17] MEDS ORDERED: MORPHINE SULFATE 2 MG/ML CPJ (NOT FOR IM USE) IV SCH (13:15)
[2021-05-17 16:00] VITALS: BP 156/79
[2021-05-17] MEDS ORDERED: MORPHINE SULFATE 4 MG/ML CPJ (NOT FOR IM USE) IV PRN (16:45)
[2021-05-17] MEDS: ACETAMINOPHEN 325MG TABLET PO PRN (18:26)
[2021-05-17 20:00] VITALS: BP 176/104
[2021-05-17] MEDS ORDERED: HYDRALAZINE 20MG/ML VIAL IV PRN (23:00)
[2021-05-18] VITALS: BP 154/90
[2021-05-18] MEDS: DIPHENHYDRAMINE 50MG/ML VIAL IV PRN (00:03)
[2021-05-18] MEDS: MORPHINE SULFATE 2 MG/ML CPJ (NOT FOR IM USE) IV PRN ×3 (00:52→18:20)
[2021-05-18 04:00] VITALS: BP 138/69
[2021-05-18 06:37] LABS: CREATINE KINASE MB FRACTION 5.7 ng/mL (0.5-3.6)
[2021-05-18 08:00] VITALS: BP 128/64
[2021-05-18] MEDS: DOCUSATE SODIUM 100MG CAPSULE PO SCH ×2 (10:44→18:20)
[2021-05-18] MEDS: HYDROCODONE/ACETAMINOPHEN 5/325MG TABLET PO PRN ×2 (10:45→23:12)
[2021-05-18 12:00] VITALS: BP 148/74
[2021-05-18 16:00] VITALS: BP 119/61
[2021-05-18] MEDS: SODIUM CHLORIDE 0.9% 1,000 ML IV SCH (17:00)
[2021-05-18] MEDS ORDERED: DIATR MEGLU/DIATRIZOATE SOLN 30ML PO SCH (18:00)
[2021-05-18 20:00] VITALS: BP 116/57
[2021-05-18 20:01] LABS: CARCINO EMBRYONIC ANTIGEN 1.6 ng/ml
[2021-05-19] VITALS (8 sets, daily range): BP systolic 98–155; BP diastolic 45–85
[2021-05-19 07:37] LABS: CHLORIDE 111 mEq/L (98-107)
[2021-05-19] MEDS: DOCUSATE SODIUM 100MG CAPSULE PO SCH ×2 (08:13→17:04)
[2021-05-19] MEDS: HYDROCODONE/ACETAMINOPHEN 5/325MG TABLET PO PRN ×2 (08:13→17:09)
[2021-05-19] MEDS: SODIUM CHLORIDE 0.9% 1,000 ML IV SCH (11:09)
[2021-05-19 11:30] LABS: BASOPHILS % 0.4 % (0.0-2.0); EOSINOPHILS % 0.3 % (0.0-5.0); HEMOGLOBIN. 8.6 g/dL (12.0-16.0); LYMPHOCYTES % 12.3 % (20.0-50.0); MEAN CORPUSCULAR HEMOGLOBIN 34.7 pg (28.0-32.0); MEAN CORPUSCULAR VOLUME 104.7 fL (81.0-99.0); MEAN PLATELET VOLUME 9.5 fl (7.4-10.4); MONOCYTES % 12.1 % (2.0-8.0); NEUTROPHILS % 74.9 % (40.0-76.0); RED BLOOD CELL COUNT 2.48 mill/uL (4.2-5.4); RED CELL DISTRIBUTION WIDTH 14.7 % (11.6-14.6)
[2021-05-19 11:32] LABS: PLATELET 159 x1000/uL (130-400)
[2021-05-19] MEDS: POLYETHYLENE GLYCOL 3350 (17GM) 1 DOSE PACK PO SCH (15:30)
[2021-05-19] MEDS: TRAMADOL 50MG TABLET PO PRN (19:22)
[2021-05-20] VITALS (12 sets, daily range): BP systolic 119–152; BP diastolic 55–85
[2021-05-20] MEDS: TRAMADOL 50MG TABLET PO PRN ×2 (02:00→21:44)
[2021-05-20] MEDS: HYDROCODONE/ACETAMINOPHEN 5/325MG TABLET PO PRN ×3 (06:24→15:56)
[2021-05-20 07:04] LABS: BASOPHILS % 0.4 % (0.0-2.0); EOSINOPHILS % 0.6 % (0.0-5.0); HEMOGLOBIN. 8.1 g/dL (12.0-16.0); MEAN CORPUSCULAR HEMOGLOBIN 35.9 pg (28.0-32.0); MEAN CORPUSCULAR VOLUME 105.9 fL (81.0-99.0); MEAN PLATELET VOLUME 9.6 fl (7.4-10.4); MONOCYTES % 11.2 % (2.0-8.0); NEUTROPHILS % 70.8 % (40.0-76.0); PLATELET 164 x1000/uL (130-400); RED BLOOD CELL COUNT 2.27 mill/uL (4.2-5.4); RED CELL DISTRIBUTION WIDTH 14.5 % (11.6-14.6)
[2021-05-20 07:08] LABS: CANCER ANTIGEN 125 14.6 U/mL (0.0-38.1)
[2021-05-20 07:22] LABS: CHLORIDE 106 mEq/L (98-107)
[2021-05-20 07:41] LABS: TOTAL IRON BINDING CAPACITY 183 ug/dL (250-450)
[2021-05-20] MEDS: DOCUSATE SODIUM 100MG CAPSULE PO SCH ×2 (08:29→17:00)
[2021-05-20] MEDS: POLYETHYLENE GLYCOL 3350 (17GM) 1 DOSE PACK PO SCH (08:29)
[2021-05-20] MEDS ORDERED: GADOTERATE MEGLUMINE 5 MMOL/10 ML VIAL IV ONE (10:33)
[2021-05-20] MEDS: PANTOPRAZOLE SODIUM 40 MG/VIAL IV SCH (17:06)
[2021-05-20] MEDS: DILTIAZEM HCL 30MG TABLET PO SCH (17:08)
[2021-05-20 17:37] LABS: VITAMIN B12 SERUM > 2000.0 pg/mL (211-911)
[2021-05-20 18:32] LABS: TOTAL IRON BINDING CAPACITY 189 ug/dL (250-450)
[2021-05-20 18:47] LABS: HEMATOCRIT 25.2 % (36.0-48.0); HEMOGLOBIN 8.5 g/dL (12.0-16.0)
[2021-05-21] VITALS (12 sets, daily range): BP systolic 134–172; BP diastolic 52–91
[2021-05-21 00:46] LABS: HEMATOCRIT 23.7 % (36.0-48.0)
[2021-05-21] MEDS: MORPHINE SULFATE 2 MG/ML CPJ (NOT FOR IM USE) IV PRN (00:57)
[2021-05-21] MEDS: DILTIAZEM HCL 30MG TABLET PO SCH (00:57)
[2021-05-21] MEDS: ACETAMINOPHEN 325MG TABLET PO PRN ×2 (01:18→10:17)
[2021-05-21] MEDS: TRAMADOL 50MG TABLET PO PRN (07:06)
[2021-05-21 07:20] LABS: HEMATOCRIT 23.6 % (36.0-48.0); HEMOGLOBIN 8.3 g/dL (12.0-16.0)
[2021-05-21 07:56] LABS: CHLORIDE 104 mEq/L (98-107)
[2021-05-21] MEDS: PANTOPRAZOLE SODIUM 40 MG/VIAL IV SCH ×2 (08:41→16:43)
[2021-05-21] MEDS: POLYETHYLENE GLYCOL 3350 (17GM) 1 DOSE PACK PO SCH (08:46)
[2021-05-21] MEDS: DOCUSATE SODIUM 100MG CAPSULE PO SCH ×2 (08:46→16:43)
[2021-05-21] MEDS: HYDROCODONE/ACETAMINOPHEN 5/325MG TABLET PO PRN ×3 (12:24→21:01)
[2021-05-21] MEDS: DILTIAZEM HCL 60MG TABLET PO SCH ×2 (12:24→16:55)
[2021-05-21 15:47] LABS: HEMATOCRIT 25.5 % (36.0-48.0); HEMOGLOBIN 8.5 g/dL (12.0-16.0)
[2021-05-22] VITALS (21 sets, daily range): BP systolic 113–182; BP diastolic 56–80
[2021-05-22] MEDS: HYDROCODONE/ACETAMINOPHEN 5/325MG TABLET PO PRN ×5 (01:39→20:40)
[2021-05-22] MEDS: DILTIAZEM HCL 60MG TABLET PO SCH ×7 (05:34→22:54)
[2021-05-22] MEDS ORDERED: CEFAZOLIN 1000MG PREMIX 50 ML IV ONE ×2 (07:35→08:15)
[2021-05-22] MEDS ORDERED: IOHEXOL-300 100 ML BOTTLE ONE (07:35)
[2021-05-22] MEDS ORDERED: LIDOCAINE HCL 1% 20ML VIAL (Pyxis) INJ ONE (07:35)
[2021-05-22] MEDS: DOCUSATE SODIUM 100MG CAPSULE PO SCH ×2 (09:00→17:00)
[2021-05-22] MEDS: POLYETHYLENE GLYCOL 3350 (17GM) 1 DOSE PACK PO SCH (09:00)
[2021-05-22] MEDS: PANTOPRAZOLE SODIUM 40 MG/VIAL IV SCH ×2 (09:27→17:00)
[2021-05-22 11:45] LABS: BASOPHILS % 0.6 % (0.0-2.0); EOSINOPHILS % 0.7 % (0.0-5.0); HEMATOCRIT. 26.4 % (36.0-48.0); HEMOGLOBIN. 8.9 g/dL (12.0-16.0); LYMPHOCYTES % 10.6 % (20.0-50.0); MEAN CORPUSCULAR HEMOGLOBIN 34.5 pg (28.0-32.0); MEAN CORPUSCULAR VOLUME 101.6 fL (81.0-99.0); MEAN PLATELET VOLUME 8.4 fl (7.4-10.4); NEUTROPHILS % 80.1 % (40.0-76.0); PLATELET 282 x1000/uL (130-400); RED CELL DISTRIBUTION WIDTH 14.2 % (11.6-14.6)
[2021-05-22 11:55] LABS: CHLORIDE 103 mEq/L (98-107)
[2021-05-22] MEDS: TRAMADOL 50MG TABLET PO PRN (14:25)
[2021-05-22] MEDS: ACETAMINOPHEN 325MG TABLET PO PRN (22:54)
[2021-05-23] VITALS (12 sets, daily range): BP systolic 105–152; BP diastolic 48–86
[2021-05-23] MEDS: HYDROCODONE/ACETAMINOPHEN 5/325MG TABLET PO PRN ×5 (01:39→20:31)
[2021-05-23] MEDS: DILTIAZEM HCL 60MG TABLET PO SCH ×4 (05:49→23:13)
[2021-05-23] MEDS: POLYETHYLENE GLYCOL 3350 (17GM) 1 DOSE PACK PO SCH (08:49)
[2021-05-23] MEDS: DOCUSATE SODIUM 100MG CAPSULE PO SCH ×2 (08:49→17:12)
[2021-05-23] MEDS: PANTOPRAZOLE SODIUM 40 MG/VIAL IV SCH ×2 (08:49→17:12)
[2021-05-23] MEDS: TRAMADOL 50MG TABLET PO PRN ×2 (08:49→23:13)
[2021-05-24] VITALS (9 sets, daily range): BP systolic 118–141; BP diastolic 64–82
[2021-05-24] MEDS: HYDROCODONE/ACETAMINOPHEN 5/325MG TABLET PO PRN ×3 (05:33→21:18)
[2021-05-24] MEDS: DILTIAZEM HCL 60MG TABLET PO SCH ×3 (05:35→17:40)
[2021-05-24] MEDS: DOCUSATE SODIUM 100MG CAPSULE PO SCH ×2 (08:25→17:40)
[2021-05-24] MEDS: POLYETHYLENE GLYCOL 3350 (17GM) 1 DOSE PACK PO SCH (08:25)
[2021-05-24] MEDS: PANTOPRAZOLE SODIUM 40 MG/VIAL IV SCH ×2 (08:25→17:40)
[2021-05-24] MEDS: TRAMADOL 50MG TABLET PO PRN (08:26)
[2021-05-24] MEDS: ONDANSETRON HCL 4MG/2ML INJ IV PRN (14:18)
[2021-05-25] VITALS (8 sets, daily range): BP systolic 104–132; BP diastolic 59–72
[2021-05-25] MEDS: HYDROCODONE/ACETAMINOPHEN 5/325MG TABLET PO PRN ×5 (01:10→20:10)
[2021-05-25] MEDS: DILTIAZEM HCL 60MG TABLET PO SCH ×5 (06:11→23:54)
[2021-05-25 06:19] LABS: BASOPHILS % 0.5 % (0.0-2.0); EOSINOPHILS % 0.9 % (0.0-5.0); HEMATOCRIT. 25.8 % (36.0-48.0); HEMOGLOBIN. 8.6 g/dL (12.0-16.0); LYMPHOCYTES % 17.6 % (20.0-50.0); MEAN CORPUSCULAR HEMOGLOBIN 34.2 pg (28.0-32.0); MEAN CORPUSCULAR VOLUME 102.7 fL (81.0-99.0); MEAN PLATELET VOLUME 8.3 fl (7.4-10.4); PLATELET 344 x1000/uL (130-400); RED BLOOD CELL COUNT 2.51 mill/uL (4.2-5.4); RED CELL DISTRIBUTION WIDTH 14.7 % (11.6-14.6)
[2021-05-25] MEDS: DOCUSATE SODIUM 100MG CAPSULE PO SCH ×2 (08:42→17:40)
[2021-05-25] MEDS: PANTOPRAZOLE SODIUM 40 MG/VIAL IV SCH ×2 (08:42→17:39)
[2021-05-25] MEDS: POLYETHYLENE GLYCOL 3350 (17GM) 1 DOSE PACK PO SCH (09:02)
[2021-05-26] VITALS (8 sets, daily range): BP systolic 105–134; BP diastolic 66–83
[2021-05-26] MEDS: HYDROCODONE/ACETAMINOPHEN 5/325MG TABLET PO PRN ×3 (00:36→10:08)
[2021-05-26] MEDS: DILTIAZEM HCL 60MG TABLET PO SCH ×3 (05:10→17:14)
[2021-05-26] MEDS: ACETAMINOPHEN 325MG TABLET PO PRN (08:30)
[2021-05-26] MEDS: DOCUSATE SODIUM 100MG CAPSULE PO SCH ×2 (08:30→17:14)
[2021-05-26] MEDS: POLYETHYLENE GLYCOL 3350 (17GM) 1 DOSE PACK PO SCH (08:30)
[2021-05-26] MEDS: PANTOPRAZOLE SODIUM 40 MG/VIAL IV SCH ×2 (08:30→17:15)
[2021-05-26] MEDS: HYDROCODONE/ACETAMINOPHEN 10/325MG TABLET PO PRN ×2 (15:12→21:58)
[2021-05-27] VITALS: BP 116/71
[2021-05-27] MEDS: DILTIAZEM HCL 60MG TABLET PO SCH ×4 (00:54→17:57)
[2021-05-27 04:00] VITALS: BP 118/68
[2021-05-27] MEDS: HYDROCODONE/ACETAMINOPHEN 10/325MG TABLET PO PRN ×4 (04:10→23:48)
[2021-05-27 08:00] VITALS: BP 123/68
[2021-05-27] MEDS: POLYETHYLENE GLYCOL 3350 (17GM) 1 DOSE PACK PO SCH (08:29)
[2021-05-27] MEDS: DOCUSATE SODIUM 100MG CAPSULE PO SCH ×2 (08:29→16:47)
[2021-05-27] MEDS: PANTOPRAZOLE SODIUM 40 MG/VIAL IV SCH ×2 (08:29→17:57)
[2021-05-27 12:00] VITALS: BP 136/82
[2021-05-27 16:00] VITALS: BP 124/76
[2021-05-27 16:04] LABS: BASOPHILS % 0.9 % (0.0-2.0); EOSINOPHILS % 0.7 % (0.0-5.0); HEMATOCRIT. 29.9 % (36.0-48.0); HEMOGLOBIN. 9.8 g/dL (12.0-16.0); LYMPHOCYTES % 15.4 % (20.0-50.0); MEAN CORPUSCULAR HEMOGLOBIN 33.3 pg (28.0-32.0); MEAN CORPUSCULAR VOLUME 101.9 fL (81.0-99.0); MEAN PLATELET VOLUME 7.7 fl (7.4-10.4); MONOCYTES % 11.7 % (2.0-8.0); NEUTROPHILS % 71.3 % (40.0-76.0); PLATELET 469 x1000/uL (130-400); RED BLOOD CELL COUNT 2.93 mill/uL (4.2-5.4); RED CELL DISTRIBUTION WIDTH 14.9 % (11.6-14.6)
[2021-05-27 20:00] VITALS: BP 136/78
[2021-05-27] MEDS: ACETAMINOPHEN 325MG TABLET PO PRN (22:26)
[2021-05-28] VITALS (7 sets, daily range): BP systolic 126–138; BP diastolic 71–95
[2021-05-28] MEDS: DILTIAZEM HCL 60MG TABLET PO SCH ×5 (00:38→23:12)
[2021-05-28] MEDS: HYDROCODONE/ACETAMINOPHEN 10/325MG TABLET PO PRN ×2 (05:43→19:57)
[2021-05-28] MEDS: PANTOPRAZOLE SODIUM 40 MG/VIAL IV SCH ×2 (09:12→17:00)
[2021-05-28] MEDS: DOCUSATE SODIUM 100MG CAPSULE PO SCH ×2 (09:12→17:00)
[2021-05-28] MEDS: POLYETHYLENE GLYCOL 3350 (17GM) 1 DOSE PACK PO SCH (09:12)
[2021-05-28] MEDS: ACETAMINOPHEN 325MG TABLET PO PRN ×2 (09:15→23:12)
== END 2021-05-28 23:50 | DRG 134 ==
LOC: ER 11:12 → EDBEDREQSVC 13:31 → 7EST 13:31 → EDBEDREQTM 13:35 → EDBEDREQ 13:35 → ENRESERV 20:18 → 5EST 05-19 09:13
PROVIDERS: ADMIT Internal Medicine; ATTEND Internal Medicine
PROC: 06H03DZ Insertion of Intraluminal Device into Inferior Vena Cava, Percutaneous Approach (ICD-10-PCS; 2021-05-13)
PROC: B519ZZA Fluoroscopy of Inferior Vena Cava, Guidance (ICD-10-PCS; 2021-05-13)
PROC: B549ZZA Ultrasonography of Inferior Vena Cava, Guidance (ICD-10-PCS; 2021-05-13)
PROC: 02HV33Z Insertion of Infusion Device into Superior Vena Cava, Percutaneous Approach (ICD-10-PCS; principal; 2021-05-15)
PROC: B548ZZA Ultrasonography of Superior Vena Cava, Guidance (ICD-10-PCS; 2021-05-15)
DX: I26.99 Other pulmonary embolism without acute cor pulmonale (principal); R65.11 Systemic inflammatory response syndrome (SIRS) of non-infectious origin with acute organ dysfunction; J96.01 Acute respiratory failure with hypoxia; E87.2 Acidosis; D68.59 Other primary thrombophilia; G82.20 Paraplegia, unspecified; I13.0 Hypertensive heart and chronic kidney disease with heart failure and stage 1 through stage 4 chronic kidney disease, or unspecified chronic kidney disease; I50.22 Chronic systolic (congestive) heart failure; I82.403 Acute embolism and thrombosis of unspecified deep veins of lower extremity, bilateral; I82.621 Acute embolism and thrombosis of deep veins of right upper extremity; E78.00 Pure hypercholesterolemia, unspecified; E78.5 Hyperlipidemia, unspecified; M54.30 Sciatica, unspecified side; N18.9 Chronic kidney disease, unspecified; R00.0 Tachycardia, unspecified; I25.10 Atherosclerotic heart disease of native coronary artery without angina pectoris; R53.81 Other malaise; G89.29 Other chronic pain; M54.50 Low back pain, unspecified; D64.9 Anemia, unspecified; J44.9 Chronic obstructive pulmonary disease, unspecified; M48.061 Spinal stenosis, lumbar region without neurogenic claudication; R26.9 Unspecified abnormalities of gait and mobility; M54.10 Radiculopathy, site unspecified; I27.82 Chronic pulmonary embolism; K92.1 Melena; Z20.822 Contact with and (suspected) exposure to COVID-19; Z82.49 Family history of ischemic heart disease and other diseases of the circulatory system; Z86.718 Personal history of other venous thrombosis and embolism; Z79.01 Long term (current) use of anticoagulants; Z79.899 Other long term (current) drug therapy; Z79.82 Long term (current) use of aspirin; Z79.1 Long term (current) use of non-steroidal anti-inflammatories (NSAID); Z87.891 Personal history of nicotine dependence; Z79.51 Long term (current) use of inhaled steroids; Z95.828 Presence of other vascular implants and grafts; N32.3 Diverticulum of bladder; K56.41 Fecal impaction
CPT/HCPCS: 36415; 37191; 71045; 71260; 71275; 72148; 73030; 73223; 74177; 76937; 80048; 80053; 80076; 81003; 82105; 82270; 82378; 82550; 82553; 82607; 82728; 82746; 83540; 83550; 83605; 83615; 83880; 84145; 84443; 84484; 85014; 85018; 85025; 85044; 85379; 85651; 86140; 86301; 86304; 86850; 86900; 87426; 93005; 93306; 93922; 93970; 93971; 99291; A9577; C1725; C1769; C1880; C9113; J0360; J0690; J1200; J1644; J1650; J2270; J2405; J3490; J7030; J7060; Q9963; Q9967